=== PATIENT | female | born 1985 | race African-American/Black ===

== ENCOUNTER 2017-05-12 23:43 | Emergency (ER) | payer OTHER ==
[~2017-05-12] VITALS: Ht 160 cm; Wt 100.0 kg
[2017-05-13 00:11] VITALS: BP 106/62
== END 2017-05-13 05:20 | disposition left against medical advice (07) ==
LOC: ER 23:43
DX: Z53.21 Procedure and treatment not carried out due to patient leaving prior to being seen by health care provider (principal)